=== PATIENT | female | born 1955 | race Caucasian/White ===

== ENCOUNTER → 2017-03-06 | Outpatient (CLI) | payer OTHER ==
[~2017-03-06] MED LIST: ACET-2321 PO; ALPR0.5T8 PO; CETI-115 PO; CITA20TA17 PO; FLUT1AER ORAL INH; LISI10TA7 PO; MAGN400C PO; NYST5ORA7 PO; ONDA8TAB5 PO; PROC10TA PO; ROSU10TA PO; SOLI5TAB6 PO; UBID100C10 PO; melatonin PO
--- NOTE | 2017-03-06 13:22 | DI ---
Indication: History of right renal carcinoma and left breast cancer, last chemoradiation therapy in 2016, history of right nephrectomy and bilateral mastectomy Procedure: PET/CT SKULL TO THIGH SUBSEQUE: Encounter: Subsequent Comparison: CTs of the chest, abdomen, and pelvis 02/05/2017 and 10/31/2016 (reports of which were not made available), PET/CT 02/08/2016 Technique: Nuclear medicine PET scanning was performed after the administration of 17 mCi of F-18 FDG from the base of the skull to the thigh. Noncontrast concurrent CT scanning was performed for attenuation correction and localization purposes only. These images do not constitute a diagnostic quality CT examination and are not used to diagnose disease independently of the PET images. A glucose level before injection was 96 mg/dl. FINDINGS: Head/neck: No abnormal FDG activity identified within the brain, although physiologic hypermetabolic activity limits evaluation. MRI remains the most sensitive/specific modality for evaluation of intracranial metastatic disease. No hypermetabolic cervical lymphadenopathy. Carotid atherosclerotic calcifications incidentally noted. Chest: Right subclavian Port-A-Cath in place. Postoperative changes of bilateral mastectomy and left axillary lymph node dissection. No hypermetabolic pulmonary nodules/mass or thoracic lymphadenopathy. Scattered subcentimeter pulmonary nodular opacities which do not demonstrate hypermetabolic FDG uptake, however the small size are likely below the threshold for adequate PET detection. Right lower lobe subpleural opacities also nonhypermetabolic having appearance most suggestive of focal fibrosis/scarring. Normal physiologic accumulation of FDG is identified within the myocardium. Bilateral upper lobe predominant emphysema, coronary arterial and thoracic aortic atherosclerotic calcifications incidentally noted. Abdomen/pelvis: Postoperative changes of right nephrectomy. No hypermetabolic abdominopelvic visceral mass or lymphadenopathy. Normal physiologic accumulation of FDG is identified within the left kidney and renal collecting system, bladder, and liver. Hiatal hernia, aortoiliac atherosclerotic calcifications and colonic diverticulosis incidentally noted. Osseous structures and soft tissues: Normal physiologic accumulation of FDG is identified within the bone marrow. Degenerative spondylosis of the spine incidentally noted. IMPRESSION: 1. Postoperative changes of bilateral mastectomy and right nephrectomy without hypermetabolic mass or lymphadenopathy identified. 2. Bilateral upper lobe predominant pulmonary emphysema with scattered subcentimeter pulmonary nodular opacities which do appear to have emerged since prior examinations in 2016 however do not demonstrate hypermetabolic FDG activity, although sensitivity is limited due to their small size. Continued CT follow-up recommended. .
== END ==
LOC: IMA 06:32
PROVIDERS: ATTEND Internal Medicine Hematology & Oncology
DX: C65.1 Malignant neoplasm of right renal pelvis (principal); J43.8 Other emphysema; R91.8 Other nonspecific abnormal finding of lung field; Z90.13 Acquired absence of bilateral breasts and nipples; Z90.5 Acquired absence of kidney
CPT/HCPCS: 78815; A9552